=== PATIENT | female | born 1975 | race Caucasian/White ===

== ENCOUNTER → 2019-12-05 07:27 | Outpatient (CLI) | payer OTHER, SELFPAY ==
--- NOTE | ~2019-12-05 | MM_ITS ---
EXAMINATION: MM screening [facility] BI w ymoaira HISTORY: Screening mammogram TECHNIQUE: Craniocaudal and mediolateral oblique 3-D tomosynthesis images were obtained and synthetic 2-D images were generated. CAD analysis was submitted and interpreted. COMPARISON: 12/01/2018, 11/29/2017, 10/03/2017, 11/27/2016 BREAST PARENCHYMAL COMPOSITION: The breasts are heterogeneously dense, which may obscure small masses . FINDINGS: There is no evidence of suspicious mass, calcification, or architectural distortion to sugg est malignancy in either breast. There has been no suspicious interval change. IMPRESSION: 1. No mammographic evidence of malignancy. 2. Recommend routine screening mammography in one year. BI-RADS Category 1: Negative Reviewed, dictated and finalized at location A.
== END ==
PROVIDERS: Visit Provider Advanced Practice Midwife
DX: Z12.31 Encounter for screening mammogram for malignant neoplasm of breast (principal)
CPT/HCPCS: 77063; 77067

== ENCOUNTER → 2020-12-15 15:13 | Outpatient (CLI) | payer OTHER, SELFPAY ==
--- NOTE | ~2020-12-15 | MM_ITS ---
EXAMINATION: MM screening [facility] w yomaira HISTORY: Screening mammogram, family history of breast cancer in her sister. TECHNIQUE: Craniocaudal and mediolateral oblique 3-D tomosynthesis images were obtained and synthetic 2-D images were generated. CAD analysis was submitted and interpreted. COMPARISON: 12/05/2019, 12/01/2018, 11/29/2017, 10/03/2017, 11/27/2016 BREAST PARENCHYMAL COMPOSITION: The breasts are heterogeneously dense, which may obscure small masses . FINDINGS: There is no evidence of suspicious mass, calcification, or architectural distortion to sugg est malignancy in either breast. There has been no suspicious interval change. IMPRESSION: 1. No mammographic evidence of malignancy. 2. Recommend routine screening mammography in one year. BI-RADS Category 1: Negative Reviewed, dictated and finalized at location A.
== END ==
PROVIDERS: Visit Provider Obstetrics & Gynecology
DX: Z12.31 Encounter for screening mammogram for malignant neoplasm of breast (principal)
CPT/HCPCS: 77063; 77067

== ENCOUNTER → 2021-12-21 16:00 | Outpatient (CLI) | payer OTHER, SELFPAY ==
--- NOTE | ~2021-12-21 | MM_ITS ---
EXAMINATION: MM screening [facility] BI w yomaira HISTORY: Screening mammogram, family history of breast cancer in her sister. TECHNIQUE: Craniocaudal and mediolateral oblique 3-D tomosynthesis images were obtained and synthetic 2-D images were generated. CAD analysis was submitted and interpreted. COMPARISON: 12/15/2020, 12/05/2019 BREAST PARENCHYMAL COMPOSITION: The breasts are heterogeneously dense, which may obscure small masses . FINDINGS: There is no suspicious mass, calcification, or architectural distortion to suggest malignan cy in either breast. There has been no suspicious interval change. IMPRESSION: 1. No mammographic evidence of malignancy. 2. Recommend routine screening mammography in one year. BI-RADS Category 1: Negative Reviewed, dictated and finalized at location A.
== END ==
PROVIDERS: Visit Provider Obstetrics & Gynecology
DX: Z12.31 Encounter for screening mammogram for malignant neoplasm of breast (principal)
CPT/HCPCS: 77063; 77067

== ENCOUNTER → 2023-01-14 16:39 | Outpatient (CLI) | payer OTHER, SELFPAY ==
--- NOTE | ~2023-01-14 | MM_ITS ---
EXAMINATION: MM screening [facility] BI w yomaira HISTORY: Screening mammogram TECHNIQUE: Craniocaudal and mediolateral oblique 3-D tomosynthesis images were obtained and synthetic 2-D images were generated. Bilateral rotated lateral CC views. CAD analysis was submitted and interp reted. COMPARISON: 12/21/2021, 12/15/2020, 12/05/2019 bilateral screening mammogram examinations BREAST PARENCHYMAL COMPOSITION: There are scattered areas of fibroglandular density. FINDINGS: There is no evidence of suspicious mass, calcification, or architectural distortion to sugg est malignancy in either breast. There has been no suspicious interval change. IMPRESSION: 1. No mammographic evidence of malignancy. 2. Recommend routine screening mammography in one year. BI-RADS Category 1: Negative Reviewed, dictated and finalized at location A.
== END ==
PROVIDERS: PCP Obstetrics & Gynecology; Visit Provider Obstetrics & Gynecology
DX: Z12.31 Encounter for screening mammogram for malignant neoplasm of breast (principal)
CPT/HCPCS: 77063; 77067

== ENCOUNTER 2024-01-16 12:07 | Outpatient (CLI) | payer OTHER, SELFPAY ==
--- NOTE | ~2024-01-16 | MM_ITS ---
EXAMINATION: MM screening [facility] BI w yomaira HISTORY: Screening mammogram TECHNIQUE: Craniocaudal and mediolateral oblique 3-D tomosynthesis images were obtained and synthetic 2-D images were generated. Bilateral rotated lateral CC views. CAD analysis was submitted and inter preted. COMPARISON: January 14, 2023, December 21, 2021 bilateral screening mammogram examinations BREAST PARENCHYMAL COMPOSITION: There are scattered areas of fibroglandular density. FINDINGS: There is no evidence of suspicious mass, calcification, or architectural distortion to sugg est malignancy in either breast. There has been no suspicious interval change. IMPRESSION: 1. No mammographic evidence of malignancy. 2. Recommend routine screening mammography in one year. BI-RADS Category 1: Negative Reviewed, dictated and finalized at location A.
== END 2024-01-16 12:08 ==
PROVIDERS: PCP Obstetrics & Gynecology; Visit Provider Obstetrics & Gynecology
DX: Z12.31 Encounter for screening mammogram for malignant neoplasm of breast (principal)
CPT/HCPCS: 77063; 77067

== ENCOUNTER 2024-02-13 06:38 | Day surgery (SDC) | payer OTHER, SELFPAY ==
[2023-11-30 14:50] VITALS: BMI 26.6
--- NOTE | 2024-02-07 12:45 | PM.HPGS ---
History of Present Illness History of Present Illness Consent: Risks, benefits, and alternatives have been discussed and questions answered. Patient agrees to proceed with procedure. Chief complaint: Family History of Colon Polyps Narrative: Emma Valdivia is a 48 year old female who is referred for colon cancer screening. Review of Systems Review of Systems: All systems reviewed & are unremarkable except as noted in HPI and below PMFSH Past Medical History Medical History No active medical problems Surgical History Surgical History History of loop electrosurgical excision procedure (LEEP) Family History Family History Father Acute myocardial infarction Diabetes mellitus Mother Ovarian cancer Social History Social History Smoking status: Never smoker Alcohol intake: current Drinks per week: 12 Substance use: never Substance use type: does not use Lack of Transportation: No Lack of Food: Never True Current Housing: I Have Housing Concerned About Future Housing: No Difficulty Paying Gas/Electric Bills: No Difficulty Paying for Meds: No Currently Unemployed: No Education: Bachelor's Degree Difficulty w/ Childcare or Family Care: No Living arrangements: with family Meds Home Medications and Allergies Home Medications Medication Instructions Recorded Confirmed Type cholecalciferol (vitamin D3) 25 25 mcg PO DAILY 09/16/20 02/13/24 History mcg (1,000 unit) capsule rliydfdcbnlm-Ik-biwo-minerals 27 1 tablet PO DAILY 10/27/21 02/13/24 History mg-0.4 mg tablet (One Daily Women's) aspirin 81 mg capsule 81 mg PO DAILY 01/30/24 02/13/24 History calcium 1 tab-cap PO DIRECTED 01/30/24 02/13/24 History Allergies Allergy/AdvReac Type Severity Reaction Status Date / Time codeine Allergy Unknown Hallucinati Verified 02/13/24 07:38 ng Exam Resp: Auscultation: clear to auscultation bilaterally Cardio: Rate: regular rate Rhythm: regular rhythm GI: GI Palp: Yes Soft to palpation and No Tenderness to palpation present (GI) Assessment and Plan Assessment and plan (1) Colon cancer screening: Code(s): Z12.11 - Encounter for screening for malignant neoplasm of colon Status: Acute Assessment and Plan: Colonoscopy with possible biopsy or polypectomy or cautery or injection of substances.
--- NOTE | 2024-02-13 06:38 | WPDANESEPPF ---
Anes - Initial Pre Proc Eval Procedure: Operation Date: 02/13/24 09:00 Proposed Procedures p Diagnostic Colonoscopy - Jerrell Cruz MD Date/Time: 02/13/24 06:38 Surgeon: Jerrell Cruz MD Pre Op Diagnosis: Family History of Colon Polyps Patient Data Age: 48 Gender: F Height: 1.52 m Weight: 59 kg Allergies Allergy/AdvReac Type Severity Reaction Status Date / Time codeine Allergy Unknown Hallucinati Verified 02/13/24 07:38 ng Home Medications Medication Instructions Recorded Confirmed Type cholecalciferol (vitamin D3) 25 25 mcg PO DAILY 09/16/20 02/13/24 History mcg (1,000 unit) capsule rreqlppcohxz-Oi-dzlc-minerals 27 1 tablet PO DAILY 10/27/21 02/13/24 History mg-0.4 mg tablet (One Daily Women's) aspirin 81 mg capsule 81 mg PO DAILY 01/30/24 02/13/24 History calcium 1 tab-cap PO DIRECTED 01/30/24 02/13/24 History Patient hx anesthesia problems: none Family hx anesthesia problems: none Results Review: All pre-operative results and documents have been reviewed as part of the pre-operative evaluation. [facility] Past Medical History Medical History No active medical problems Surgical History Surgical History History of loop electrosurgical excision procedure (LEEP) Family History Family History Father Acute myocardial infarction Diabetes mellitus Mother Ovarian cancer Social History Social History Smoking status: Never smoker Alcohol intake: current Drinks per week: 12 Substance use: never Substance use type: does not use Lack of Transportation: No Lack of Food: Never True Current Housing: I Have Housing Concerned About Future Housing: No Difficulty Paying Gas/Electric Bills: No Difficulty Paying for Meds: No Currently Unemployed: No Education: Bachelor's Degree Difficulty w/ Childcare or Family Care: No Living arrangements: with family Anes - Eval Final PreProcedure Day of Procedure 02/13/24 06:38 Patient weight: overweight Heart: regular rate and rhythm Lungs: clear to auscultation Airway: Mallampati scale class II Neurological: alert and oriented Last oral intake: >/= 8 hours ASA classification: II Emergent: no Anesthetic plan: proceed Anesthesia type and monitoring: general GIVS and standard monitoring Results Review: All pre-operative results and documents have been reviewed as part of the pre-operative evaluation. Informed Consent: The patient's anesthetic plan and its attendant risks and benefits were discussed with the patient/family/POA. Questions were solicited and answers provided to the satisfaction of the patient/family/POA.
[2024-02-13 07:43] VITALS: BP 142/96; PULSE 85; RESP 15; TEMP 36.7; O2SAT 100
[2024-02-13] MEDS: LACTATED RINGERS 1,000 ML 150 ML IV CONT (08:03)
[2024-02-13 09:11] VITALS: BP 137/104; PULSE 88; RESP 16; O2SAT 100
[2024-02-13 09:21] VITALS: BP 100/64; PULSE 77; RESP 16; O2SAT 100
[2024-02-13 09:31] VITALS: BP 105/69; PULSE 67; RESP 16; O2SAT 100
--- NOTE | 2024-02-13 11:57 | WPDANESPN ---
Anes - Prog Note Post-Op Date/Time: 02/13/24 11:57 Cardiovascular status: normal Respiratory status: normal Airway patency: baseline Mental status: baseline Post-Op hydration status: normal Vital Signs: Last Vital Signs Temp 36.7 C 02/13/24 07:43 Pulse 67 02/13/24 09:31 Resp 16 02/13/24 09:31 BP 105/69 02/13/24 09:31 Pulse Ox 100 02/13/24 09:31 O2 Del Method Room Air 02/13/24 09:31 Pain Score (VAS): 0 I/O: Intake & Output 02/12/24 02/13/24 02/13/24 23:59 07:59 15:59 Intake Total 480 Balance 480 Post-procedural complaints: none Patient Feedback: Patient satisfied with anesthetic care. Other Findings: Patient vital signs back to baseline. Patient denies nausea and vomiting. Patient's pain under control. Patient OK for discharge.
== END 2024-02-13 09:38 | disposition home or self-care (01) ==
PROVIDERS: PCP Obstetrics & Gynecology; Visit Provider Internal Medicine Gastroenterology
PROC: 0DJD8ZZ Inspection of Lower Intestinal Tract, Via Natural or Artificial Opening Endoscopic (ICD-10-PCS; CPT 45378; principal; 2024-02-13 09:00)
DX: Z83.718 Family history of other colon polyps (principal)
CPT/HCPCS: 45378

== ENCOUNTER 2025-03-26 15:52 | Outpatient (CLI) | payer OTHER, SELFPAY ==
--- NOTE | ~2025-03-26 | MM_ITS ---
EXAMINATION: MM screening [facility] BI w yomaira HISTORY: Screening mammogram, family history of breast cancer in her sister. TECHNIQUE: Craniocaudal and mediolateral oblique 3-D tomosynthesis images were obtained and synthetic 2-D images were generated. CAD analysis was submitted and interpreted. COMPARISON: 01/16/2024, 01/14/2023, 12/21/2021, 12/15/2020 BREAST PARENCHYMAL COMPOSITION:Not Dense. There are scattered areas of fibroglandular density. FINDINGS: No suspicious mass, calcification, or architectural distortion are identified in either logan ast to suggest malignancy. There has been no suspicious interval change. IMPRESSION: No mammographic evidence of malignancy. Recommend routine screening mammography in one year. BI-RADS Category 1: Negative Reviewed, dictated and finalized at location .
== END 2025-03-26 15:53 | disposition home or self-care (01) ==
LOC: MICIMG 15:52
PROVIDERS: PCP Obstetrics & Gynecology; Visit Provider Obstetrics & Gynecology
DX: Z12.31 Encounter for screening mammogram for malignant neoplasm of breast (principal)
CPT/HCPCS: 77063; 77067